=== PATIENT | female | born 1995 | race African-American/Black ===

== ENCOUNTER 2022-10-02 15:22 | Emergency (ER) | payer OTHER ==
[~2022-10-02] VITALS: Ht 154.9 cm; Wt 113.4 kg
[2022-10-02] MEDS ORDERED: TRAM1TAB98 PO (20:09)
[2022-10-02] MEDS ORDERED: ADVIL DUAL ACT1 EACH PO (20:09)
== END 2022-10-02 20:30 | disposition home or self-care (01) ==
LOC: ER 15:22
DX: S82.61XA Displaced fracture of lateral malleolus of right fibula, initial encounter for closed fracture (principal); W05.2XXA Fall from non-moving motorized mobility scooter, initial encounter; Y93.89 Activity, other specified; Y92.89 Other specified places as the place of occurrence of the external cause; Y99.9 Unspecified external cause status